=== PATIENT | male | born 1995 | race Caucasian/White ===

== ENCOUNTER 2018-06-20 17:28 | Emergency (ER) | payer OTHER ==
[~2018-06-20] VITALS: Ht 180.3 cm; Wt 83.9 kg
[~2018-06-20 17:28] MED LIST: ACETAMINOPHEN-1 EAC1 PO; CEPHALEXIN 500500 M3 PO
[2018-06-20 17:33] VITALS: BP 130/56
[2018-06-20] MEDS ORDERED: PATADAY2.5 ML INTRAOCULR (17:46)
[2018-06-20] MEDS ORDERED: FLONASE 0.05%50 MCG NASAL (17:46)
== END 2018-06-20 18:07 | disposition home or self-care (01) ==
LOC: M.ERS 17:28
DX: S61.011D Laceration without foreign body of right thumb without damage to nail, subsequent encounter (principal); J30.9 Allergic rhinitis, unspecified; H10.13 Acute atopic conjunctivitis, bilateral; I10 Essential (primary) hypertension; X58.XXXD Exposure to other specified factors, subsequent encounter